=== PATIENT | male | born 1995 | race American Indian/Alaskan Native ===

== ENCOUNTER 2016-10-19 03:30 | Inpatient (IN) | payer MEDICAID ==
--- NOTE | 2016-10-19 04:09 | ED PDOC ---
HPI: Psych/Substance Abuse Time Seen by Provider: 10/19/16 04:00 Chief Complaint (Nursing): Psychiatric Evaluation Chief Complaint (Provider): crisis eval History Per: Patient Additional Complaint(s): 21-year-old male with history of bipolar disorder presents to emergency department for crisis evaluation. Patient states he has been feeling suicidal and his plan would be to take a box gluer and cut his throat. Patient states he came to ED this evening before cutting himself. He is currently non- domiciled. Patient offers no acute medical complaints. He states he has been off of his psychiatric meds for several months. Past Medical History Reviewed: Historical Data, Nursing Documentation, Vital Signs Vital Signs: Last Vital Signs Temp 98.2 F 10/19/16 03:47 Pulse 59 L 10/19/16 03:47 Resp 16 10/19/16 03:47 BP 135/78 10/19/16 03:47 Pulse Ox 99 10/19/16 03:47 - Medical History PMH: Bipolar Disorder, Depression - Surgical History Surgical History: No Surg Hx - Family History Family History: States: No Known Family Hx - Living Arrangements Living Arrangements: Other (non-domiciled) - Social History Current smoker - smoking cessation education provided: Yes Alcohol: Social Drugs: Cannabis - Home Medications Home Medications: Ambulatory Orders Medication Instructions Recorded Divalproex [Depakote DR(*BID*)] 500 mg PO BID #60 tcp 07/09/16 [place] Carbonate [[place] 150 mg PO BID #60 cap 07/09/16 Carbonate 150MG] Prazosin HCl [Minipress] 1 mg PO HS #30 cap 07/09/16 QUEtiapine [Seroquel] 25 mg PO HS #30 tab 07/09/16 - Allergies Allergies/Adverse Reactions: Allergies Allergy/AdvReac Type Severity Reaction Status Date / Time mushroom Allergy RASH Verified 10/19/16 03:47 pollen extracts Allergy RASH Verified 10/19/16 03:47 Review of Systems ROS Statement: Except As Marked, All Systems Reviewed And Found Negative Psych: Positive for: Suicidal ideation, Other (plan to cut throat with box gluer, off psych meds for several months, h/o bipolar disorder) Physical Exam - Reviewed Nursing Documentation Reviewed: Yes Vital Signs Reviewed: Yes - Physical Exam Appears: Positive for: Well, Non-toxic, No Acute Distress Head Exam: Positive for: ATRAUMATIC, NORMAL INSPECTION Skin: Negative for: Rash Eye Exam: Positive for: Normal appearance, EOMI, PERRL Cardiovascular/Chest: Positive for: Regular Rate, Rhythm Respiratory: Positive for: Normal Breath Sounds Extremity: Positive for: Normal ROM. Negative for: Pedal Edema Neurologic/Psych: Positive for: Alert, Oriented - Laboratory Results Result Diagrams: 10/19/16 04:32 10/19/16 04:32 - ECG O2 Sat by Pulse Oximetry: 99 Pulse Ox Interpretation: Normal Medical Decision Making Medical Decision Makin21 year old male with suicidal ideation Plan: 1:1 bedside observation CBC CMP BAL UDS CXR UA Crisis consult Disposition - Clinical Impression Clinical Impression: Suicidal ideation - Patient ED Disposition Is Patient to be Admitted: Transfer of Care - Disposition Disposition: Transfer of Care Disposition Time: 06:29 Condition: STABLE Patient Signed Over To: Karmen Corona Y Handoff Comments: Case was signed out to Dr. Glaser pending crisis evaluation and final disposition. Results - Lab Results Lab Results: 10/19/16 04:32 WBC 6.0 RBC 5.18 Hgb 13.1 Hct 40.5 MCV 78.1 L MCH 25.3 L MCHC 32.4 L RDW 15.4 H Plt Count 168 MPV 8.3 Neut % (Auto) 46.1 L Lymph % (Auto) 36.2 [place] % (Auto) 8.7 Eos % (Auto) 8.3 H Baso % (Auto) 0.7 Neut # 2.8 Lymph # 2.2 [place] # 0.5 Eos # 0.5 Baso # 0.0 Sodium 146 Potassium 4.4 Chloride 106 Carbon Dioxide 25 Anion Gap 19 BUN 18 Creatinine 0.9 Est GFR ( Amer) > 60 Est GFR (Non-Af Amer) > 60 Random Glucose 76 Calcium 9.6 Total Bilirubin 0.7 AST 32 ALT 12 L D Alkaline Phosphatase 70 Total Protein 7.9 Albumin 4.2 Globulin 3.7 Albumin/Globulin Ratio 1.1 Urine Color Yellow Urine Clarity Clear Urine pH 6.0 Ur Specific [place] 1.019 Urine Protein Negative Urine Glucose (UA) Neg Urine Ketones Negative Urine Blood Negative Urine Nitrate Negative Urine Bilirubin Negative Urine Urobilinogen 0.2-1.0 Ur Leukocyte Esterase Neg Urine RBC (Auto) < 1 Urine Microscopic WBC < 1 Urine Bacteria Rare Urine Opiates Screen Negative Urine Methadone Screen Negative Ur Barbiturates Screen Negative Ur Phencyclidine Scrn Negative Ur Amphetamines Screen Negative U Benzodiazepines Scrn Negative U Oth Cocaine Metabols Negative U Cannabinoids Screen Positive H Alcohol, Quantitative < 10
[2016-10-19 05:06] LABS: BASO % 0.7 % (0.0-2.0); EOS # 0.5 K/uL (0.0-0.7); EOS % 8.3 % (0.0-4.0); HEMATOCRIT 40.5 % (35.0-51.0); LYMPH # 2.2 K/uL (1.0-4.3); LYMPH % 36.2 % (20.0-40.0); MEAN CELL VOLUME 78.1 fl (80.0-94.0); MEAN CORPUSCULAR HEMOGLOBIN 25.3 pg (27.0-31.0); MEAN CORPUSCULAR HGB CONC 32.4 g/dL (33.0-37.0); MEAN PLATELET VOLUME 8.3 fl (7.2-11.7); MONO # 0.5 K/uL (0.0-0.8); MONO % 8.7 % (0.0-10.0); NEUT # 2.8 K/uL (1.8-7.0); NEUT % 46.1 % (50.0-75.0); NRBC % 1.5 % (0.0-0.0); RED CELL DISTRIBUTION WIDTH 15.4 % (11.5-14.5)
[2016-10-19 05:16] LABS: RBC URINE < 1 /hpf (0-3); URINE BACTERIA RARE (<OCC); URINE BILIRUBIN NEGATIVE (NEGATIVE); URINE BLOOD NEGATIVE (NEGATIVE); URINE COLOR YELLOW (YELLOW); URINE GLUCOSE (UA) NEG (Normal); URINE KETONE NEGATIVE (NEGATIVE); URINE LEUKOCYTE ESTERASE NEG Leu/uL (Negative); URINE PROTEIN NEGATIVE (NEGATIVE); URINE UROBILINOGEN 0.2-1.0 mg/dL (0.2-1.0); WBC URINE < 1 /hpf (0-5)
[2016-10-19 05:19] LABS: ALB/GLOB RATIO 1.1 (1.0-2.1); ALCOHOL SERUM < 10 mg/dl (0-10); ALKALINE PHOSPHATASE 70 U/L (38-126); ALT/SGPT 12 U/L (21-72); AST/SGOT 32 U/L (17-59); BILIRUBIN,TOTAL 0.7 mg/dl (0.2-1.3); BLOOD UREA NITROGEN 18 mg/dl (9-20); CALCIUM 9.6 mg/dL (8.4-10.2); CARBON DIOXIDE 25 mmol/L (22-30); CHLORIDE 106 mmol/L (98-107); GFR AFRICAN-AMERICAN > 60; GLUCOSE,RANDOM 76 mg/dL (75-110); POTASSIUM 4.4 MMOL/L (3.6-5.0); SODIUM 146 mmol/l (132-148); TOTAL PROTEIN 7.9 G/DL (6.3-8.2)
--- NOTE | 2016-10-19 06:13 | ED PDOC ---
- Laboratory Results Result Diagrams: 10/19/16 04:32 10/19/16 04:32 - ECG O2 Sat by Pulse Oximetry: 99 Medical Decision Making Medical Decision Making: Patient s/o from Doni Abreu PA-C at 0600 pending crisis eval. Patient s/o to Dr. Schilling at 0700 pending crisis eval. Scribe Attestation: Documented by Arias Perla acting as a scribe for Karmen Corona MD. Provider Scribe Attestation: All medical record entries made by the Scribe were at my direction and personally dictated by me. I have reviewed the chart and agree that the record accurately reflects my personal performance of the history, physical exam, medical decision making, and the department course for this patient. I have also personally directed, reviewed, and agree with the discharge instructions and disposition. Disposition - Disposition Disposition: Transfer of Care Disposition Time: 07:00 Patient Signed Over To: Barrett Schilling Handoff Comments: pending crisis eval
--- NOTE | 2016-10-19 06:47 | ED PDOC ---
- Laboratory Results Result Diagrams: 10/19/16 04:32 10/19/16 04:32 - ECG O2 Sat by Pulse Oximetry: 99 Medical Decision Making Medical Decision Making: received signout from ED leblanc pending crisis eval per crisis pt to be admitted to psych under Dr alnda DX depression Disposition - Clinical Impression Clinical Impression: Suicidal ideation - POA Present On Arrival: None - Disposition Disposition: Admitted as In-Patient Disposition Time: 06:48 Condition: STABLE
--- NOTE | 2016-10-19 11:09 | RAD ---
HISTORY: clearance COMPARISON: No prior. FINDINGS: LUNGS: The lungs are well inflated and clear. PLEURA: No significant pleural effusion identified, no pneumothorax apparent. CARDIOVASCULAR: Normal. OSSEOUS STRUCTURES: No significant abnormalities. VISUALIZED UPPER ABDOMEN: Normal. OTHER FINDINGS: None. IMPRESSION: No active pulmonary disease.
[2016-10-19] MEDS ORDERED: Alum-Mag Hydrox-Simethicone Susp (30 mL) PO PRN (16:21)
[2016-10-19] MEDS ORDERED: DiphenhydrAMINE 50 mg/ml Inj IM PRN (16:21)
[2016-10-19] MEDS ORDERED: Magnesium Hydroxide Susp 30 ml UD PO PRN (16:21)
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
[2016-10-19 19:53] VITALS: RESP 18
[2016-10-20 08:48] LABS: CHOLESTEROL 119 mg/dL (0-199)
[2016-10-20 09:06] LABS: T4 5.61 ug/dl (5.5-11.0)
[2016-10-20] MEDS: Lithium Carbonate 150 MG CAP PO SCH ×3 (09:09→16:15)
[2016-10-20] MEDS: Divalproex 500 mg DR(BID formulation) PO SCH ×2 (09:09→16:20)
[2016-10-20 09:19] LABS: THYROID STIMULATING HORMONE 0.66 mIU/ML (0.46-4.68)
--- NOTE | 2016-10-20 13:29 | PCM.PYCHPN ---
Psychiatric Progress Note - Psychiatric Progress Note Patient seen today, length of contact: discussed with team Patient Chief Complaint: i am ok Problems Identified/Issues Discussed: pt irritable. continues to express depressed mood. no aggression or agitation. Medication Change: No Medical Record Reviewed: Yes Mental Status Examination - Cognitive Function Orientation: Person, Place, Situation, Time Memory: Intact Attention: WNL Concentration: WNL Association: WNL Fund of Knowledge: WN Decription of patient's judgement and insights: fair - Mood Mood: Depressed, Anxious, Euphoric - Affect Affect: Broad - Formal Thought Process Formal Thought Process: Paranoia, Loosening of associations, Flight of ideas Psychotic Thoughts and Behaviors: internally preoccupied - Homicidal Ideation Homicidal Ideation: No Goal/Treatment Plan - Goal/Treatment Plan Need for Continued Stay: Remain at risks for inpatient hospitalization, Severe functional impairment Progress Toward Problem(s) and Goals/Treatment Plan: bipolar disorder, mixed will continue current medications disposition planing Estimated Date of D/C: 10/24/16
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
[2016-10-21] MEDS: Lithium Carbonate 150 MG CAP PO SCH ×2 (09:01→17:07)
[2016-10-21] MEDS: Divalproex 500 mg DR(BID formulation) PO SCH ×2 (09:01→17:07)
--- NOTE | 2016-10-21 14:12 | PCM.PYCHPN ---
Psychiatric Progress Note - Psychiatric Progress Note Patient seen today, length of contact: discussed with team Patient Chief Complaint: i am ok Problems Identified/Issues Discussed: pt irritable, loud and with poor impulse control at times. he is social with peers. he denies medication side effects. Medication Change: No Medical Record Reviewed: Yes Mental Status Examination - Cognitive Function Orientation: Person, Place, Situation, Time Memory: Intact Attention: WNL Concentration: WNL Association: WNL Fund of Knowledge: [facility] Decription of patient's judgement and insights: fair - Mood Mood: Depressed, Anxious, Euphoric - Affect Affect: Broad - Formal Thought Process Formal Thought Process: Paranoia, Loosening of associations, Flight of ideas - Suicidal Ideation Suicidal Ideation: No Plan: denies currently - Homicidal Ideation Homicidal Ideation: No Goal/Treatment Plan - Goal/Treatment Plan Need for Continued Stay: Remain at risks for inpatient hospitalization, Severe functional impairment Progress Toward Problem(s) and Goals/Treatment Plan: bipolar disorder, mixed will continue current medications disposition planing check depakote level tomorrow Estimated Date of D/C: 10/24/16
[2016-10-21 17:09] VITALS: O2SAT 99
[2016-10-22] MEDS: Lithium Carbonate 150 MG CAP PO SCH ×2 (09:19→18:02)
[2016-10-22] MEDS: Divalproex 500 mg DR(BID formulation) PO SCH (09:19)
--- NOTE | 2016-10-22 13:34 | PCM.PYCHPN ---
Psychiatric Progress Note - Psychiatric Progress Note Patient seen today, length of contact: in treatment team Patient Chief Complaint: i need to go soon Problems Identified/Issues Discussed: pt signed 48 hour notice. he is more redirectable. denies suicidal thoughts. denies any medication side effects. Medication Change: No Medical Record Reviewed: Yes Mental Status Examination - Cognitive Function Orientation: Person, Place, Situation, Time Memory: Intact Attention: WNL Concentration: WNL Association: WNL Fund of Knowledge: [facility] Decription of patient's judgement and insights: fair i/j - Mood Mood: Depressed, Anxious, Euphoric - Affect Affect: Broad - Speech Speech: Appropriate Additional comments: but mumbles - Formal Thought Process Formal Thought Process: Flight of ideas Psychotic Thoughts and Behaviors: denies a/v hallucinations - Suicidal Ideation Suicidal Ideation: No - Homicidal Ideation Homicidal Ideation: No Goal/Treatment Plan - Goal/Treatment Plan Need for Continued Stay: Remain at risks for inpatient hospitalization, Severe functional impairment Progress Toward Problem(s) and Goals/Treatment Plan: bipolar disorder, mixed will continue current medications check lithium level tomorrow depakote will be switched to hs dosing Estimated Date of D/C: 10/24/16
[2016-10-22 16:55] VITALS: BP 122/63; PULSE 74; TEMP 98.2
[2016-10-22] MEDS ORDERED: Divalproex 500 mg ER (ONCE DAILY formulation) PO SCH (22:00)
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
[2016-10-23] MEDS: Lithium Carbonate 150 MG CAP PO SCH (12:28)
== END 2016-10-23 14:23 | disposition home or self-care (01) | DRG 430 ==
LOC: H.ER 03:30 → H.ERHOLD 06:46 → H.PSYCH 15:07
PROVIDERS: ADMIT Psychiatry & Neurology Psychiatry; ATTEND Psychiatry & Neurology Psychiatry
PROC: GZHZZZZ Group Psychotherapy (ICD-10-PCS; principal; 2016-10-19)
PROC: GZ58ZZZ Individual Psychotherapy, Cognitive-Behavioral (ICD-10-PCS; 2016-10-19)
DX: F31.62 Bipolar disorder, current episode mixed, moderate (principal); F17.210 Nicotine dependence, cigarettes, uncomplicated; F12.10 Cannabis abuse, uncomplicated; J45.909 Unspecified asthma, uncomplicated; Z59.0 Homelessness; Z62.810 Personal history of physical and sexual abuse in childhood